=== PATIENT | female | born 2000 | race Caucasian/White ===

== ENCOUNTER 2023-09-10 00:23 | Emergency (ER) | payer MEDICAID ==
[~2023-09-10] VITALS: Ht 157.5 cm; Wt 95.3 kg
[2023-09-10 00:42] VITALS: BP 141/99; PULSE 94; RESP 18; TEMP 97.7; O2SAT 96
[2023-09-10] MEDS: KETOROLAC 30 MG/ML VIAL IM ONE (03:46)
[2023-09-10 04:25] VITALS: BP 130/96; PULSE 92; RESP 18; TEMP 98; O2SAT 96
[2023-09-10] MEDS ORDERED: IBUP-2213 PO (04:52)
== END 2023-09-10 05:05 | disposition home or self-care (01) ==
LOC: MED 00:23
DX: R22.32 Localized swelling, mass and lump, left upper limb (principal); M79.602 Pain in left arm; Z79.1 Long term (current) use of non-steroidal anti-inflammatories (NSAID)
CPT/HCPCS: 76536; 81025; 96372; 99285; J1885